=== PATIENT | male | born 1975 ===

== ENCOUNTER 2018-09-05 17:00 | Outpatient (CLI) | payer OTHER | END 2018-09-05 17:01 | disposition home or self-care (01) | LOC: SLEEPLAB 17:00 | PROVIDERS: ATTEND Family Medicine | DX: G47.33 Obstructive sleep apnea (adult) (pediatric) (principal); E66.9 Obesity, unspecified; R40.0 Somnolence; R53.83 Other fatigue; R51 Headache; R06.83 Snoring; Z68.42 Body mass index [BMI] 45.0-49.9, adult | CPT/HCPCS: 95806 ==